=== PATIENT | male | born 2000 | race Caucasian/White ===

== ENCOUNTER 2021-11-15 20:56 | Emergency (ER) | payer OTHER ==
[2021-11-15 21:10] VITALS: TEMP 99.3; BMI 32.8
[2021-11-15] MEDS ORDERED: PROPOFOL 200 MG/20 ML VIAL IVPUSH ONE (21:59)
[2021-11-15] MEDS ORDERED: PROPOFOL 20 ML ONE (22:03)
[2021-11-15 23:52] VITALS: BP 130/79; PULSE 89
== END 2021-11-16 00:18 | disposition home or self-care (01) ==
LOC: FER 20:56
PROC: 3E033NZ Introduction of Analgesics, Hypnotics, Sedatives into Peripheral Vein, Percutaneous Approach (ICD-10-PCS; principal; 2021-11-15)
PROC: 3E033GC Introduction of Other Therapeutic Substance into Peripheral Vein, Percutaneous Approach (ICD-10-PCS; 2021-11-15)
DX: S43.101A Unspecified dislocation of right acromioclavicular joint, initial encounter (principal); W50.0XXA Accidental hit or strike by another person, initial encounter; Y93.67 Activity, basketball
CPT/HCPCS: 73030-TC-RT-FY; 99285-25

== ENCOUNTER 2021-11-23 10:02 | Day surgery (SDC) | payer OTHER ==
[2021-11-21 11:49] VITALS: BMI 23.1
[2021-11-23] MEDS ORDERED: ROPIVACAINE HCL/PF 100 MG/20 ML VIAL ONE (10:45)
[2021-11-23] MEDS ORDERED: MIDAZOLAM HCL 2 MG/2 ML SINGLE DOSE VIAL ONE (10:45)
[2021-11-23] MEDS ORDERED: fentaNYL CITRATE 250 MCG/5 ML VIAL ONE (11:40)
[2021-11-23] MEDS ORDERED: PROPOFOL 20 ML ONE ×3 (11:40→12:09)
[2021-11-23] MEDS ORDERED: SUCCINYLCHOLINE CHLORIDE 200 MG/10 ML SYRINGE ONE (11:41)
[2021-11-23] MEDS ORDERED: ceFAZolin SODIUM 1 GM VIAL ONE (11:45)
[2021-11-23] MEDS ORDERED: LIDOCAINE HCL/PF 2% SDV 5ML VIAL ONE (11:45)
[2021-11-23] MEDS ORDERED: TRANEXAMIC ACID 1000 MG/10 ML VIAL ONE (12:23)
[2021-11-23] MEDS ORDERED: ONDANSETRON 4 MG/2 ML VIAL ONE (12:30)
[2021-11-23] MEDS ORDERED: DEXAMETHASONE SOD PHOSPHATE 4 MG/1 ML VIAL ONE (12:30)
[2021-11-23] MEDS ORDERED: ONDANSETRON 4 MG/2 ML VIAL IVPUSH PRN (14:05)
[2021-11-23] MEDS ORDERED: ACETAMINOPHEN 500 MG TABLET (FP) PO SCH (14:15)
[2021-11-23] MEDS ORDERED: LACTATED RINGERS SOLUTION 1,000 ML IV SCH (14:15)
[2021-11-23 15:15] VITALS: TEMP 97.9
[2021-11-23 15:33] VITALS: BP 123/84; PULSE 58
== END 2021-11-23 16:27 | disposition home or self-care (01) ==
LOC: FASU 10:02
PROVIDERS: ATTEND Orthopaedic Surgery Sports Medicine
PROC: 0RSG0ZZ Reposition Right Acromioclavicular Joint, Open Approach (ICD-10-PCS; principal; 2021-11-23 12:14)
DX: S43.51XA Sprain of right acromioclavicular joint, initial encounter (principal); X58.XXXA Exposure to other specified factors, initial encounter; Y93.9 Activity, unspecified; Y92.9 Unspecified place or not applicable
CPT/HCPCS: 23550; C1713; 94760